=== PATIENT | male | born 1950 | race Caucasian/White ===

== ENCOUNTER 2019-09-11 07:20 | Emergency (ER) | payer MEDICARE, BC ==
[~2019-09-11] VITALS: Ht 170.2 cm; Wt 79.1 kg
[2019-09-11] MEDS ORDERED: morphine 4 MG/ML inj SYRINge IM ONE (08:00)
[2019-09-11] MEDS ORDERED: ketorolac trometh. 30mg/ml inj. IM ONE (08:00)
--- NOTE | 2019-09-11 09:18 | NUR ---
called ultrasound to confirm if they saw the order placed over an hour ago for the vascular study that is due, they report that they do not have an order for this pt. provider was made aware
[2019-09-11 11:15] VITALS: BP 128/80
== END 2019-09-11 11:16 | disposition home or self-care (01) ==
LOC: ER 07:21
DX: M19.071 Primary osteoarthritis, right ankle and foot (principal); M79.671 Pain in right foot; Z88.5 Allergy status to narcotic agent
CPT/HCPCS: 93971; 96372; 99284; J1885; J2270

== ENCOUNTER 2024-06-27 14:25 | Emergency (ER) | payer BC ==
[~2024-06-27] VITALS: Ht 170.2 cm; Wt 73.4 kg
[2024-06-27 14:28] VITALS: TEMP 97.8
[2024-06-27] MEDS: ondansetron 4mg rapidly disintigrating tab PO ONE (15:29)
[2024-06-27] MEDS: morphine 4 MG/ML inj SYRINge IM ONE (15:31)
[2024-06-27 17:05] VITALS: BP 118/73; PULSE 73; RESP 15; O2SAT 96
== END 2024-06-27 17:07 | disposition home or self-care (01) ==
LOC: ER 14:26
DX: M54.59 Other low back pain (principal); F17.200 Nicotine dependence, unspecified, uncomplicated; Z88.5 Allergy status to narcotic agent
CPT/HCPCS: 72131; 96372; 99285; J2270